=== PATIENT | female | born 1980 | race Caucasian/White ===

== ENCOUNTER 2020-04-05 22:18 | Emergency (ER) | payer MEDICAID ==
[~2020-04-05] VITALS: Ht 165.1 cm; Wt 86.2 kg
[2020-04-05 22:26] VITALS: BP_SYST 143
--- NOTE | 2020-04-05 22:30 | NUR ---
Patient to ER bed 3 for evaluation. Side rails up. Report given to Brayan QUARLES.
--- NOTE | 2020-04-05 22:43 | NUR ---
PT SITTING UP IN GURNEY, DENIES ANY DISTRESS. REFUSING TO CHANGE INTO GOWN AT THIS TIME. "I JUST NEED ANTIBIOTICS" DENIES PAIN
--- NOTE | 2020-04-05 22:45 | NUR ---
ER at bedside examining patient.
[2020-04-05 23:01] LABS: BILIRUBIN,URINE NEGATIVE (NEGATIVE); BLOOD, URINE NEGATIVE (NEGATIVE); CLARITY/URINE SL CLOUDY (CLEAR); COLOR,URINE YELLOW (YELLOW); GLUCOSE,URINE NEGATIVE (NEGATIVE); KETONES,URINE NEGATIVE (NEGATIVE); LEUKOCYTE ESTERASE ,URINE TRACE (NEGATIVE); NITRITE, URINE NEGATIVE (NEGATIVE); PROTEIN URINE NEGATIVE (NEGATIVE); UROBILINOGEN,URINE 0.2 (0.2-1.0)
[2020-04-05 23:09] LABS: BACTERIA,URINE MODERATE /HPF (None Seen); RBC,URINE 0-3 /HPF (0-3)
[2020-04-05] MEDS ORDERED: AZITHROMYCIN 250 MG TABLET PO ONE (23:45)
[2020-04-05] MEDS ORDERED: cefTRIAXone 500 MG in LIDOCAINE 1%, 20 ML MDV 1 ML IM ONE (23:45)
[2020-04-06 00:33] VITALS: BP_SYST 138
--- NOTE | 2020-04-06 00:34 | NUR ---
Patient given written and verbal discharge instructions and verbalizes understanding. ER MD discussed with patient the results and treatment provided. Patient in stable condition. ID arm band removed. Patient educated on pain management and to follow up with PMD. Pain Scale 0. Opportunity for questions provided and answered. Medication side effect fact sheet provided.
[2020-04-08 03:06] LABS: CHLAMYDIA TRACHOMATIS NAA Negative (Negative)
[2020-04-08 08:03] LABS: NEISSERIA GONORRHOEAE NAA Positive (Negative)
--- NOTE | 2020-04-08 08:40 | NUR ---
RECEIVED +GONORRHEA FROM LAB, WILL NOTIFY PT.
--- NOTE | 2020-04-08 08:42 | NUR ---
CALLED GIVEN NUMBER [phone], UNABLE TO LEAVE A MESSAGE DUE TO NO VOICEMAIL AT THIS TIME. WILL ATTEMPT TO CALL AGAIN
--- NOTE | 2020-04-08 14:03 | NUR ---
ATTEMPTED TO CALL PT AT GIVEN NUMBER [phone]
--- NOTE | 2020-04-11 15:01 | NUR ---
ATTEMPTED TO CALL PT AGAIN AT [phone], PHONE DOES NOT RING AND UNABLE TO LEAVE A MESSAGE.
== END 2020-04-06 00:33 | disposition home or self-care (01) ==
LOC: SED 22:18
DX: N89.8 Other specified noninflammatory disorders of vagina (principal); I10 Essential (primary) hypertension; Z20.2 Contact with and (suspected) exposure to infections with a predominantly sexual mode of transmission
CPT/HCPCS: 81000; 81025; 87086; 87491; 87591; 96372; 99283; J0696; Q0144

== ENCOUNTER 2020-05-12 17:29 | Emergency (ER) | payer MEDICAID ==
[~2020-05-12] VITALS: Ht 167.6 cm; Wt 83.9 kg
--- NOTE | 2020-05-12 17:30 | NUR ---
Pt brought by self, A&Ox4, pt presents to ER after HIV exposure, pt states she had sex last night and was told by partner he had HIV, pt states she would like to take prophylaxis medication between 72 hours, pt afebrile, skin pink and warm, cap refill <3, VSS, respirations even and unlabored.
[2020-05-12 17:40] VITALS: BP_SYST 140
--- NOTE | 2020-05-12 18:18 | NUR ---
Dr Brown assessing patient in the triage room
[2020-05-12 18:55] LABS: BILIRUBIN,URINE NEGATIVE (NEGATIVE); BLOOD, URINE NEGATIVE (NEGATIVE); COLOR,URINE YELLOW (YELLOW); GLUCOSE,URINE NEGATIVE (NEGATIVE); KETONES,URINE NEGATIVE (NEGATIVE); LEUKOCYTE ESTERASE ,URINE NEGATIVE (NEGATIVE); NITRITE, URINE NEGATIVE (NEGATIVE); PROTEIN URINE NEGATIVE (NEGATIVE); UROBILINOGEN,URINE 0.2 (0.2-1.0)
[2020-05-12 19:01] LABS: CLARITY/URINE SLIGHTLY HAZY (CLEAR)
[2020-05-12 19:14] VITALS: BP_SYST 128
--- NOTE | 2020-05-12 19:15 | NUR ---
Patient given written and verbal discharge instructions and verbalizes understanding. ER MD discussed with patient the results and treatment provided. Patient in stable condition. ID arm band removed. IV catheter removed intact and dressing applied, no active bleeding. Rx of Tenofovir/ Dolutegravir given. Patient educated on pain management and to follow up with PMD. Pain Scale 0/10 . Opportunity for questions provided and answered. Medication side effect fact sheet provided.
[2020-05-14 08:08] LABS: HEPATITIS A AB, IgM Negative (Negative); HEPATITIS B CORE AB, IgM Negative (Negative); HEPATITIS B SURFACE AG Negative (Negative)
== END 2020-05-12 19:14 | disposition home or self-care (01) ==
LOC: SED 17:29
DX: Z20.6 Contact with and (suspected) exposure to human immunodeficiency virus [HIV] (principal)
CPT/HCPCS: 36415; 81003; 86592; 86695; 86696; 86705; 86709; 87340; 87491; 87591; 99283